=== PATIENT | male | born 1955 | race Caucasian/White ===

== ENCOUNTER → 2021-11-20 | Outpatient (CLI) | payer MEDICARE, OTHER | LOC: COL.RAD 13:13 | DX: Z12.2 Encounter for screening for malignant neoplasm of respiratory organs (principal); F17.210 Nicotine dependence, cigarettes, uncomplicated ==

== ENCOUNTER 2022-01-14 10:26 | Inpatient (IN) | payer MEDICARE, OTHER ==
[~2022-01-14] VITALS: Ht 175.3 cm; Wt 88.6 kg
[2022-01-14] VITALS (12 sets, daily range): BP systolic 90–130; BP diastolic 65–82; PULSE 59–69; TEMP 97.4
[2022-01-14 12:09] LABS: ALBUMIN 4.1 gm/dL (3.4-4.8); BILIRUBIN,TOTAL 0.5 mg/dL (0.2-1.2); C-REACTIVE PROTEIN 0.25 mg/dL (0.00-0.50); CALCIUM 9.5 mg/dL (8.4-10.2); CREATININE, serum 1.21 mg/dL (0.72-1.25); TOTAL PROTEIN 7.7 gm/dL (6.2-8.1)
[2022-01-14 12:13] LABS: BASO % 0.4 % (0.0-2.0); EOS # 0.3 K/mm3 (0.0-0.7); GRAN # 7.2 K/mm3 (1.4-6.5); HEMATOCRIT 45.6 % (42.0-52.0); HEMOGLOBIN 15.5 g/dl (13.5-18.0); LYMPH # 1.3 K/mm3 (1.2-3.4); LYMPH % 14.1 % (20.0-51.0); MEAN CELL VOLUME 96 fl (80.0-100.0); MEAN CORPUSCULAR HEMOGLOBIN 33 pg (27-31); MEAN CORPUSCULAR HGB CONC 34 g/dl (33.0-37.0); MONO # 0.5 K/mm3 (0.1-0.6); MONO % 5.2 % (1.7-9.3); PLATELET COUNT 214 K/mm3 (130-400); RED BLOOD COUNT 4.75 M/mm3 (4.20-5.60); REDCELL DISTRIBUTION WIDTH-CV 12.3 % (11.5-14.5)
[2022-01-14 12:23] LABS: TROPONIN-I 0.282 ng/mL (0.00-0.033)
--- NOTE | 2022-01-14 16:11 | NUR ---
SEE MERGE FOR VITAL SIGNS, ASSESSMENTS, INTERVENTIONS AND MEDICATIONS GIVEN.
--- NOTE | 2022-01-14 17:12 | NUR ---
FOLLOWING CATH PROCEDURE PATIENT HAD HYPOTENSION AND COMPLAINED OF NAUSEA. NO CHEST PAIN OR SHORTNESS OF BREATH REPORTED. CALL TO TO INFORM OF PATIENT STATUS. ORDERED 4MG ZOFRAN IV AND TO INCREASE FLUIDS TO 150MLS/HR. SEE MERGE FOR VITAL SIGN DOCUMENTATION. PATIENT NAUSEA RESOLVED WITH ZOFRAN ADMINISTRATION AND BLOOD PRESSURE IMPROVED WITH FLUIDS.
[2022-01-14] MEDS ORDERED: FLOMAX 0.40.4 MG/CAP PO (18:13)
[2022-01-14] MEDS ORDERED: ASPIRIN 81M81 MG/TA2 PO (18:14)
[2022-01-14] MEDS ORDERED: HYGROTON 2525 MG/TAB PO (18:15)
[2022-01-14] MEDS ORDERED: SINEQUAN 2525 MG/CAP PO (18:15)
[2022-01-14] MEDS ORDERED: CRESTOR 10MG10 MG PO (18:15)
[2022-01-14] MEDS ORDERED: MICARDIS20 MG PO (18:16)
[2022-01-14] MEDS ORDERED: NATURAL POTASS595 MG PO (18:17)
--- NOTE | 2022-01-14 21:38 | NUR ---
Patient assessed around 194. Alert and oriented, and able to make needs known. Denies having pain and discomfort. Patient had TR band to right radial heart cath site. All air removed and placed bandaid to site. Does have some bruising above site. Patient voices no questions, needs, or concerns at this time. In bed with call light within reach.
[2022-01-15 00:10] VITALS: BP 115/60; PULSE 61; TEMP 97.9
[2022-01-15 03:46] VITALS: BP 107/57; PULSE 61; TEMP 98.4
--- NOTE | 2022-01-15 06:25 | NUR ---
Patient has denied pain and discomfort this shift. Voices no questions, needs, or concerns at this time. In bed with call light within reach.
[2022-01-15 06:53] LABS: BASO % 0.3 % (0.0-2.0); EOS # 0.4 K/mm3 (0.0-0.7); EOS % 4.2 % (0.0-4.0); GRAN # 6.9 K/mm3 (1.4-6.5); GRAN % 69.5 % (42.2-75.2); HEMATOCRIT 40.8 % (42.0-52.0); HEMOGLOBIN 14.7 g/dl (13.5-18.0); LYMPH % 19.6 % (20.0-51.0); MEAN CORPUSCULAR HEMOGLOBIN 33 pg (27-31); MEAN CORPUSCULAR HGB CONC 36 g/dl (33.0-37.0); MEAN PLATELET VOLUME 10.1 fl (7.4-10.4); MONO # 0.6 K/mm3 (0.1-0.6); MONO % 6.1 % (1.7-9.3); PLATELET COUNT 187 K/mm3 (130-400); RED BLOOD COUNT 4.47 M/mm3 (4.20-5.60); REDCELL DISTRIBUTION WIDTH-CV 12.1 % (11.5-14.5)
[2022-01-15 06:59] LABS: MEAN CELL VOLUME 91 fl (80.0-100.0)
[2022-01-15 07:11] VITALS: BP 108/70; PULSE 59; TEMP 97.7
[2022-01-15 07:14] LABS: ALBUMIN 3.5 gm/dL (3.4-4.8); CALCIUM 9.2 mg/dL (8.4-10.2); CREATININE, serum 0.98 mg/dL (0.72-1.25); MAGNESIUM 1.9 mg/dL (1.6-2.6); PHOSPHOROUS 3.3 mg/dL (2.3-4.7); POTASSIUM 3.6 mmol/L (3.5-4.5)
[2022-01-15] MEDS ORDERED: LIPITOR 40MG TA40 MG PO (07:47)
[2022-01-15] MEDS ORDERED: BRILINTA90 MG PO (07:48)
[2022-01-15] MEDS ORDERED: NITROSTAT0.4 MG/TAB SL (07:48)
--- NOTE | 2022-01-15 08:00 | NUR ---
Pt awake and sitting up in bed. Morning medications administered per eMAR. Shift assessment completed. VSS. Telemetry on; bradycardic. INT in R AC intact; no edema or redness. NS infusing @100mL/hr in L AC intact; no edema or redness. R radial cardiac cath site CDI. RAD pulses noted. Pedal pulses noted. Pt denies having any pain at this time. Call light within reach.
--- NOTE | 2022-01-15 10:24 | NUR ---
Radial Heart Cath- Reviewed discharge instructions for radial heart catheterization. Discussed monitoring for redness, hot to touch, inflammation, or temperature >100.4. Discussed when to contact the physician for signs of symptoms of complications or SC. Also reviewed risk factors for heart disease. Covered applicable modifiable risk factors including the following: tobacco cessation, HTN, hyperlipidemia, diabetes, overweight/obesity, sedentary lifestyle, and stress/depression. Patient verbalized understanding. Referral sent to Cardiac Rehab with patient's permission. Patient scheduled to start cardiac rehab on 01/22/22 @ 1100 per cardiac rehab referral from Dr. Candelario.
[2022-01-15] MEDS ORDERED: LIPITOR 80MG80 MG PO (10:56)
[2022-01-15 11:46] VITALS: BP 103/62; PULSE 62; TEMP 98
== END 2022-01-15 12:19 | disposition home or self-care (01) | DRG 247 ==
LOC: COL.ER 10:26 → MEDICAL 15:05
PROVIDERS: Family Medicine; Internal Medicine Cardiovascular Disease; ADMIT Internal Medicine
PROC: 027034Z Dilation of Coronary Artery, One Artery with Drug-eluting Intraluminal Device, Percutaneous Approach (ICD-10-PCS; principal; 2022-01-14)
PROC: 4A023N7 Measurement of Cardiac Sampling and Pressure, Left Heart, Percutaneous Approach (ICD-10-PCS; 2022-01-14)
PROC: B2111ZZ Fluoroscopy of Multiple Coronary Arteries using Low Osmolar Contrast (ICD-10-PCS; 2022-01-14)
DX: I21.4 Non-ST elevation (NSTEMI) myocardial infarction (principal); J44.9 Chronic obstructive pulmonary disease, unspecified; F10.90 Alcohol use, unspecified, uncomplicated; I25.10 Atherosclerotic heart disease of native coronary artery without angina pectoris; E78.5 Hyperlipidemia, unspecified; I10 Essential (primary) hypertension; F17.210 Nicotine dependence, cigarettes, uncomplicated; N40.0 Benign prostatic hyperplasia without lower urinary tract symptoms; Z79.82 Long term (current) use of aspirin; Z88.0 Allergy status to penicillin
CPT/HCPCS: C1725; C1769; C1874; C1887; C9600; J0583; J1644; J2250; J2405; J3010; Q9967

== ENCOUNTER 2022-01-25 12:15 | Outpatient (RCR) | payer MEDICARE, OTHER ==
[~2022-01-25 12:15] MED LIST: ASPIRIN 81M81 MG/TA2 PO; BRILINTA90 MG PO; CRESTOR 10MG10 MG PO; FLOMAX 0.40.4 MG/CAP PO; HYGROTON 2525 MG/TAB PO; LIPITOR 40MG TA40 MG PO; LIPITOR 80MG80 MG PO; MICARDIS20 MG PO; NATURAL POTASS595 MG PO; NITROSTAT0.4 MG/TAB SL; SINEQUAN 2525 MG/CAP PO
== END 2022-01-28 | disposition home or self-care (01) ==
LOC: COL.CR
DX: Z48.812 Encounter for surgical aftercare following surgery on the circulatory system (principal); Z95.5 Presence of coronary angioplasty implant and graft

== ENCOUNTER 2022-04-29 12:07 | Outpatient (RCR) | payer MEDICARE, OTHER | END 2022-04-30 | disposition home or self-care (01) | LOC: COL.CR | DX: Z48.812 Encounter for surgical aftercare following surgery on the circulatory system (principal); Z95.5 Presence of coronary angioplasty implant and graft ==

== ENCOUNTER 2023-07-28 05:39 | Day surgery (SDC) | payer MEDICARE, OTHER ==
[~2023-07-28] VITALS: Ht 175.3 cm; Wt 76.6 kg
[~2023-07-28 05:39] MED LIST changes: +LR 1,000 ML IV SCH; +Ondansetron 4 MG/2 ML VIAL IV PRN
--- NOTE | 2023-07-28 05:55 | NUR ---
PATIENT ADMITTED TO BAY 1 AMBULATORY AND ORIENTED TO ROOM. REPORTS GOOD RESULTS FROM THE PREP. HOME MEDICATIONS VERIFIED. STATES TOOK ALL MEDICATIONS 07/27/2023 AT 0800. STATES NORMALLY TAKES EVERYTHING IN AT NIGHT BUT UNSURE IF HE SHOULD HAVE THEM LAST PM. IVF INFUSINGN. FIANCE IN ROOM. CALL LIGHT IN REACH.
[2023-07-28] MEDS ORDERED: LIPITOR 80MG80 MG PO (06:29)
[2023-07-28] MEDS ORDERED: MICARDIS40 MG PO (06:30)
[2023-07-28] MEDS ORDERED: TOPROL XL 25MG25 MG PO (06:31)
[2023-07-28] MEDS ORDERED: SINEQUAN 2525 MG/CAP PO (06:31)
[2023-07-28] MEDS ORDERED: ASPIRIN E.C. 8181 MG PO (06:32)
[2023-07-28] MEDS ORDERED: NITROSTAT0.4 MG/TAB SL (06:32)
[2023-07-28] MEDS ORDERED: VITAMIN D31000 I1 PO (06:34)
[2023-07-28] MEDS ORDERED: TYLENOL 500MG500 MG PO (06:35)
[2023-07-28 06:42] VITALS: BP 124/85; PULSE 70; TEMP 98.3
[2023-07-28] MEDS ORDERED: Glycopyrrolate 0.2 MG/ML 1 ML VIAL ONE (06:50)
[2023-07-28] MEDS ORDERED: Lidocaine PF 2% (20 MG/ML) 5 ML VIAL ONE (06:50)
[2023-07-28 08:05] VITALS: BP 110/71; PULSE 61; TEMP 97.4
--- NOTE | 2023-07-28 08:05 | NUR ---
PATIENT AMBULATED TO CHAIR WITH STEADY GAIT, ASSIST OF 2. ALERT AND AWAKE. DENIES PAIN, NAUSEA AND SHORTNESS OF BREATH. BREATHING REGULAR AND UNLABORED ON ROOM AIR. SKIN WARM AND DRY. IV IN PLACE. NURSE HANDOFF COMPLETED IN ROOM. SEE CHART FOR VITAL SIGNS. PATIENT HAD APPLE JUICE AND A MUFFIN. BOTH FOOD AND DRINK TOLERATED WELL. CALL LIGHT IN REACH. [facility] (PT [facility]) PRESENT IN ROOM. SPOKE WITH CELIO AFTER THE PROCEDURE.
[2023-07-28 08:15] VITALS: BP 118/71; PULSE 71
[2023-07-28 08:30] VITALS: BP 130/78; PULSE 84
--- NOTE | 2023-07-28 08:37 | NUR ---
0827: DISCHARGE TEACHING COMPLETED WITH PRINTED EDUCATION AND INSTRUCTIONS SENT HOME WITH PATIENT. PATIENT VERBALIZED UNDERSTANDING OF TEACHING. 0831: IV REMOVED. GAUZE AND COBAN PLACED OVER SITE. 0837: PATIENT DISCHARGED HOME WITH [facility]SP[facility].
== END 2023-07-28 08:37 | disposition home or self-care (01) ==
LOC: SDCO 05:39
DX: Z12.11 Encounter for screening for malignant neoplasm of colon (principal); D12.4 Benign neoplasm of descending colon; F17.210 Nicotine dependence, cigarettes, uncomplicated; Z79.82 Long term (current) use of aspirin; Z95.5 Presence of coronary angioplasty implant and graft
CPT/HCPCS: J2704; J7120

== ENCOUNTER 2024-02-01 01:17 | Emergency (ER) | payer MEDICARE, OTHER ==
[~2024-02-01] VITALS: Ht 175.3 cm; Wt 84.1 kg
[2024-02-01 01:08] LABS: PROTHROMBIN TIME 10.8 SECONDS (9.7-12.8)
[2024-02-01 01:11] LABS: PARTIAL THROMBOPLASTIN TIME 28.4 SECONDS (26.0-37.0)
[2024-02-01 01:12] LABS: ALBUMIN 3.6 g/dL (3.4-4.8); BILIRUBIN,TOTAL 0.5 mg/dL (0.2-1.2); CALCIUM 9.1 mg/dL (8.4-10.2); CREATININE, serum 1.21 mg/dL (0.72-1.25); POTASSIUM 3.4 mEq/L (3.5-4.5); TOTAL PROTEIN 6.9 g/dl (6.2-8.1)
[~2024-02-01 01:17] MED LIST changes: +ASPIRIN E.C. 8181 MG PO; -LR 1,000 ML IV SCH; +MICARDIS40 MG PO; -Ondansetron 4 MG/2 ML VIAL IV PRN; +TOPROL XL 25MG25 MG PO; +TYLENOL 500MG500 MG PO; +VITAMIN D31000 I1 PO
[2024-02-01 01:18] LABS: TROPONIN-I 0.015 ng/mL (0.00-0.033)
[2024-02-01 01:23] VITALS: TEMP 98.1
[2024-02-01] MEDS ORDERED: NS 500 ML IV SCH (01:30)
[2024-02-01 01:52] LABS: BASO % 0.3 % (0.0-2.0); EOS # 0.5 K/mm3 (0.0-0.7); EOS % 5.5 % (0.0-4.0); GRAN # 5.7 K/mm3 (1.4-6.5); GRAN % 61.8 % (42.2-75.2); HEMATOCRIT 43.1 % (42.0-52.0); HEMOGLOBIN 15.2 g/dl (13.5-18.0); LYMPH # 2.1 K/mm3 (1.2-3.4); LYMPH % 23.4 % (20.0-51.0); MEAN CELL VOLUME 98 fl (80.0-100.0); MEAN CORPUSCULAR HEMOGLOBIN 35 pg (27-31); MEAN CORPUSCULAR HGB CONC 35 g/dl (33.0-37.0); MEAN PLATELET VOLUME 9.6 fl (7.4-10.4); MONO # 0.8 K/mm3 (0.1-0.6); MONO % 8.8 % (1.7-9.3); PLATELET COUNT 190 K/mm3 (130-400)
[2024-02-01] MEDS ORDERED: Ondansetron 4 MG/2 ML VIAL IV ONE (02:00)
[2024-02-01] MEDS ORDERED: Aspirin 325 MG TAB PO ONE (02:00)
[2024-02-01 04:29] VITALS: BP 115/72; PULSE 53
== END 2024-02-01 04:29 | disposition home or self-care (01) ==
LOC: COL.ER 01:17
PROVIDERS: Emergency Medicine
DX: R07.89 Other chest pain (principal)
CPT/HCPCS: J2405; J7040